=== PATIENT | female | born 1980 | race Caucasian/White ===

== ENCOUNTER 2024-03-05 12:39 | Outpatient (CLI) | payer BC | END 2024-03-05 18:46 | disposition home or self-care (01) | LOC: SMA 12:39 | PROVIDERS: ATTEND Family Medicine | DX: R92.333 Mammographic heterogeneous density, bilateral breasts (principal) | CPT/HCPCS: 77066 ==

== ENCOUNTER 2024-03-30 09:57 | Outpatient (CLI) | payer BC | END 2024-03-30 20:57 | disposition home or self-care (01) | LOC: SMA 09:57 | PROVIDERS: ATTEND Specialist | DX: N60.01 Solitary cyst of right breast (principal); N64.4 Mastodynia | CPT/HCPCS: 76642; 77065 ==